=== PATIENT | male | born 1950 | race Caucasian/White ===

== ENCOUNTER 2025-09-04 05:52 | Day surgery (SDC) | payer MEDICARE ==
[2025-08-31 12:53] VITALS: BMI 21.7
[2025-09-04] MEDS ORDERED: Bupivacaine/Epinephrine 0.25% 30 ML VIAL ONE (06:15)
[2025-09-04] MEDS ORDERED: PROPOFOL 20 ML ONE (06:45)
[2025-09-04] MEDS ORDERED: Lidocaine 1% PF 5 ML VIAL ONE (06:46)
[2025-09-04] MEDS ORDERED: Rocuronium Bromide 10 MG/ML (10ML VIAL) ONE (06:46)
[2025-09-04] MEDS ORDERED: CEFAZOLIN 2 GM VIAL ONE (06:51)
[2025-09-04] MEDS ORDERED: Glycopyrrolate 0.2 MG/ML 5 ML SYRINGE ONE (07:36)
[2025-09-04] MEDS ORDERED: SUGAMMADEX SODIUM 200 MG/2 ML VIAL ONE (08:34)
[2025-09-04] MEDS ORDERED: HYDROmorphone 0.5 MG/0.5 ML SYRINGE ONE (09:42)
[2025-09-04] MEDS ORDERED: HYDROcodone/Acetaminophen 5/325 mg Tablet ONE (10:08)
== END 2025-09-04 11:55 | disposition home or self-care (01) ==
LOC: CSHSDC 05:52
PROVIDERS: ATTEND Surgery
PROC: 0YUA4JZ Supplement Bilateral Inguinal Region with Synthetic Substitute, Percutaneous Endoscopic Approach (ICD-10-PCS; principal; 2025-09-04)
DX: K40.20 Bilateral inguinal hernia, without obstruction or gangrene, not specified as recurrent (principal); G20.A1 Parkinson's disease without dyskinesia, without mention of fluctuations; Z79.899 Other long term (current) drug therapy
CPT/HCPCS: 49650; C1781 ×2; J1100; J1171; J2704; S2900

== ENCOUNTER 2025-09-04 16:59 | Emergency (ER) | payer MEDICARE ==
[2025-09-04 17:35] LABS: Glucose, Urine (Dipstick) 100 mg/dL (Negative); Leukocyte Negative (Negative); Protein, Urine (Dipstick) 15 mg/dl (Neg-Trace); Specific Gravity, Urine 1.015 (1.005-1.030)
[2025-09-04 18:17] LABS: CAUTI Indications for Culture Pelvic or flank pain; RBC/HPF 0-3 HPF (0-3); WBC/HPF 0-3 HPF (0-3)
[2025-09-04 18:18] LABS: Bacteria/HPF 2+ HPF (None Seen); Mucous/LPF 1+ LPF (<2+)
[2025-09-04 18:19] LABS: Urine Culture Reflex No No
== END 2025-09-04 19:01 | disposition home or self-care (01) ==
LOC: CSHERS 16:59
DX: R33.9 Retention of urine, unspecified (principal)
CPT/HCPCS: 51702; 81001; 99283